=== PATIENT | female | born 1955 | race Caucasian/White ===

== ENCOUNTER 2022-07-31 11:23 | Emergency (ER) | payer OTHER ==
[2022-07-31] MEDS ORDERED: Sodium Chloride 0.9% 2.5 ML Syringe FLUSH PRN (11:38)
[2022-07-31] MEDS ORDERED: Sodium Chloride 0.9% 10 ML Syringe FLUSH PRN (11:38)
[2022-07-31] MEDS ORDERED: Albuterol/Ipratropium 3.0-0.5 MG/3 ML Neb Soln NEB STA (11:40)
[2022-07-31] MEDS ORDERED: methylPREDNISolone Sodium Succinate 125 MG/2 ML SDV IVPUSH STA (11:41)
[2022-07-31 11:50] LABS: BASOPHILS PERCENT AUTO 0.3 % (0.0-1.5); EOSINOPHILS ABSOLUTE AUTO 0.1 K/uL (0.0-0.7); EOSINOPHILS PERCENT AUTO 2.1 % (0.0-7.0); HEMATOCRIT 42.8 % (36.0-46.0); HEMOGLOBIN 14.4 g/dL (12.0-16.0); LYMPHOCYTES ABSOLUTE AUTO 2.5 K/uL (0.6-2.4); LYMPHOCYTES PERCENT AUTO 40.2 % (16.0-40.0); MEAN CORPUSCULAR HEMOGLOBIN 29.3 pg (27.0-32.0); MEAN CORPUSCULAR HGB CONC 33.6 g/dL (31.0-37.0); MEAN CORPUSCULAR VOLUME 87.2 fL (80.0-98.0); MONOCYTES ABSOLUTE AUTO 0.4 K/uL (0.0-0.8); MONOCYTES PERCENT AUTO 6.6 % (0.0-15.0); NEUTROPHILS ABSOLUTE AUTO 3.1 K/uL (1.4-5.7); NEUTROPHILS PERCENT AUTO 50.8 % (48.0-80.0); NRBC ABSOLUTE 0 K/uL; PLATELET COUNT,PLT 205 K/uL (150-400); RED BLOOD CELL COUNT 4.91 M/uL (4.30-5.90); WHITE BLOOD CELL COUNT,WBC 6.09 K/uL (4.0-11.0)
[2022-07-31 12:35] LABS: A/G RATIO 0.9 (0.9-1.6); ALBUMIN 3.6 g/dL (3.4-5.0); BILIRUBIN TOTAL 0.3 mg/dL (0.2-1.0); CALCIUM 8.7 mg/dL (8.5-10.1); CARBON DIOXIDE,CO2 26.3 mmol/L (21.0-32.0); CREATININE 0.8 mg/dL (0.6-1.0); EST CRCL DRUG DOSING (CG) 71.67 mL/min; POTASSIUM,K 3.9 mmol/L (3.5-5.1); PROTEIN TOTAL,TP 7.6 g/dL (6.4-8.2)
[2022-07-31] MEDS ORDERED: Albuterol 8 GM Inhaler INH STA (13:10)
== END 2022-07-31 13:27 | disposition home or self-care (01) ==
LOC: MW.ED 11:23
DX: J18.9 Pneumonia, unspecified organism (principal); J44.1 Chronic obstructive pulmonary disease with (acute) exacerbation; I48.91 Unspecified atrial fibrillation; I10 Essential (primary) hypertension; F17.210 Nicotine dependence, cigarettes, uncomplicated; Z88.5 Allergy status to narcotic agent; Z88.8 Allergy status to other drugs, medicaments and biological substances; Z88.2 Allergy status to sulfonamides; Z79.899 Other long term (current) drug therapy; Z20.822 Contact with and (suspected) exposure to COVID-19
CPT/HCPCS: 36415; 71045; 80053; 85025; 87635; 93005; 96374; 99285; A9270; J2930; J3490; 93010; 99284; J7620-GY; U0002

== ENCOUNTER 2022-08-01 22:28 | Inpatient (IN) | payer OTHER ==
[2022-08-01] MEDS ORDERED: Albuterol/Ipratropium 3.0-0.5 MG/3 ML Neb Soln NEB ONE (22:41)
[2022-08-01 23:01] LABS: BASOPHILS PERCENT AUTO 0.1 % (0.0-1.5); EOSINOPHILS PERCENT AUTO 0.1 % (0.0-7.0); HEMATOCRIT 42.5 % (36.0-46.0); HEMOGLOBIN 14.1 g/dL (12.0-16.0); LYMPHOCYTES ABSOLUTE AUTO 3.2 K/uL (0.6-2.4); LYMPHOCYTES PERCENT AUTO 31.3 % (16.0-40.0); MEAN CORPUSCULAR HEMOGLOBIN 28.9 pg (27.0-32.0); MEAN CORPUSCULAR HGB CONC 33.2 g/dL (31.0-37.0); MEAN CORPUSCULAR VOLUME 87.1 fL (80.0-98.0); MONOCYTES ABSOLUTE AUTO 0.6 K/uL (0.0-0.8); MONOCYTES PERCENT AUTO 5.7 % (0.0-15.0); NEUTROPHILS ABSOLUTE AUTO 6.3 K/uL (1.4-5.7); NEUTROPHILS PERCENT AUTO 62.8 % (48.0-80.0); NRBC ABSOLUTE 0 K/uL; PLATELET COUNT,PLT 219 K/uL (150-400); RED BLOOD CELL COUNT 4.88 M/uL (4.30-5.90); WHITE BLOOD CELL COUNT,WBC 10.07 K/uL (4.0-11.0)
[2022-08-01 23:17] LABS: INR 1.01 (0.86-1.11)
[2022-08-01 23:25] LABS: A/G RATIO 0.9 (0.9-1.6); ALANINE AMINOTRANSFERASE,ALT 22 IU/L (14-63); ALBUMIN 3.6 g/dL (3.4-5.0); ALKALINE PHOSPHATASE 78 U/L (46-116); ASPARTATE AMNIOTRANSFERASE,AST 16 IU/L (15-37); BILIRUBIN TOTAL 0.3 mg/dL (0.2-1.0); BLOOD UREA NITROGEN,BUN 23 mg/dL (7.0-18.0); C-REACTIVE PROTEIN <0.20 mg/dL (0.00-0.90); CARBON DIOXIDE,CO2 27.9 mmol/L (21.0-32.0); CHLORIDE,CL 101 mmol/L (98-107); CREATININE 1.1 mg/dL (0.6-1.0); EST CRCL DRUG DOSING (CG) 52.12 mL/min; GLUCOSE RANDOM 107 mg/dL (74-106); POTASSIUM,K 3.8 mmol/L (3.5-5.1); PROTEIN TOTAL,TP 7.5 g/dL (6.4-8.2); SODIUM,NA 139 mmol/L (136-145)
[2022-08-01 23:26] LABS: ESTIMATED GFR 56 mL/min (>60)
[2022-08-01] MEDS ORDERED: Azithromycin 500 MG in Sodium Chloride 0.9% 250 ML IV ONE (23:37)
[2022-08-01] MEDS ORDERED: cefTRIAXone 1 GM in Sodium Chloride 0.9% 50 ML IV ONE (23:37)
[2022-08-02] MEDS: Albuterol/Ipratropium 3.0-0.5 MG/3 ML Neb Soln NEB PRN ×2 (09:00→19:24)
[2022-08-02] MEDS ORDERED: Acetaminophen 325 MG Tab PO PRN (10:32)
[2022-08-02] MEDS ORDERED: methylPREDNISolone Sodium Succinate 40 MG/1 ML SDV IVPUSH ONE (11:53)
[2022-08-02] MEDS ORDERED: Enoxaparin 40 MG/0.4 ML Syringe SUBCUT SCH (12:30)
[2022-08-02] MEDS ORDERED: WARFARIN 4 MG PO SCH (12:45)
[2022-08-02] MEDS ORDERED: WARFARIN PO SCH ×3 (13:00)
[2022-08-02] MEDS: Digoxin 250 MCG Tab PO SCH (13:09)
[2022-08-02] MEDS: Hydrochlorothiazide 25 MG Tab PO SCH (13:09)
[2022-08-02] MEDS: Losartan 50 MG Tab PO SCH (13:10)
[2022-08-02] MEDS: Diltiazem 120 MG Cap.CD PO SCH (13:11)
[2022-08-02] MEDS: Nystatin Topical Powder 15 GM Bottle TOP SCH ×2 (14:11→21:50)
[2022-08-02] MEDS: Fluticasone NASAL Spray 16 GM Bottle NASBOTH SCH (14:12)
[2022-08-02] MEDS ORDERED: Albuterol/Ipratropium 3.0-0.5 MG/3 ML Neb Soln NEB PRN (21:13)
[2022-08-02] MEDS: Albuterol 0.083% 2.5 MG/3 ML Neb Soln NEB SCH (22:59)
[2022-08-02] MEDS: cefTRIAXone 1 GM in Sodium Chloride 0.9% 50 ML IV SCH (23:00)
[2022-08-02] MEDS: Azithromycin 500 MG in Sodium Chloride 0.9% 250 ML IV SCH (23:59)
[2022-08-03] MEDS: Albuterol 0.083% 2.5 MG/3 ML Neb Soln NEB SCH (05:36)
[2022-08-03] MEDS: Nystatin Topical Powder 15 GM Bottle TOP SCH ×3 (05:38→22:36)
[2022-08-03 05:58] LABS: BASOPHILS PERCENT AUTO 0.1 % (0.0-1.5); HEMATOCRIT 41.6 % (36.0-46.0); HEMOGLOBIN 13.7 g/dL (12.0-16.0); LYMPHOCYTES PERCENT AUTO 18.2 % (16.0-40.0); MEAN CORPUSCULAR HGB CONC 32.9 g/dL (31.0-37.0); MEAN CORPUSCULAR VOLUME 87.9 fL (80.0-98.0); MONOCYTES ABSOLUTE AUTO 0.6 K/uL (0.0-0.8); MONOCYTES PERCENT AUTO 5.2 % (0.0-15.0); NEUTROPHILS ABSOLUTE AUTO 8.2 K/uL (1.4-5.7); NEUTROPHILS PERCENT AUTO 76.5 % (48.0-80.0); NRBC ABSOLUTE 0 K/uL; PLATELET COUNT,PLT 237 K/uL (150-400); RED BLOOD CELL COUNT 4.73 M/uL (4.30-5.90); WHITE BLOOD CELL COUNT,WBC 10.75 K/uL (4.0-11.0)
[2022-08-03 06:06] LABS: INR 0.99 (0.86-1.11)
[2022-08-03 06:19] LABS: CARBON DIOXIDE,CO2 27.2 mmol/L (21.0-32.0); CREATININE 0.9 mg/dL (0.6-1.0); EST CRCL DRUG DOSING (CG) 62.86 mL/min; POTASSIUM,K 3.9 mmol/L (3.5-5.1)
[2022-08-03] MEDS: Losartan 50 MG Tab PO SCH (08:28)
[2022-08-03] MEDS: Diltiazem 120 MG Cap.CD PO SCH (08:28)
[2022-08-03] MEDS: Hydrochlorothiazide 25 MG Tab PO SCH (08:28)
[2022-08-03] MEDS: Digoxin 250 MCG Tab PO SCH (08:28)
[2022-08-03] MEDS: Fluticasone NASAL Spray 16 GM Bottle NASBOTH SCH (08:35)
[2022-08-03] MEDS ORDERED: Ipratropium 12.9 GM Inhaler INH PRN (09:56)
[2022-08-03] MEDS ORDERED: Albuterol 8 GM Inhaler INH PRN (09:57)
[2022-08-03] MEDS ORDERED: methylPREDNISolone Sodium Succinate 40 MG/1 ML SDV IVPUSH ONE (10:02)
[2022-08-03] MEDS: Enoxaparin 40 MG/0.4 ML Syringe SUBCUT SCH (10:49)
[2022-08-03] MEDS ORDERED: WARFARIN PO SCH ×3 (14:00)
[2022-08-03] MEDS: Albuterol 8 GM Inhaler INH PRN ×2 (17:22→22:24)
[2022-08-03] MEDS: Ipratropium 0.02% 0.5 MG/2.5 ML Neb Soln INH PRN (17:25)
[2022-08-03] MEDS ORDERED: Mometasone Furoate Powder 220 MCG/Puff 14 Dose Inhaler INH SCH (21:00)
[2022-08-03] MEDS: cefTRIAXone 1 GM in Sodium Chloride 0.9% 50 ML IV SCH ×2 (23:03→23:08)
[2022-08-04] MEDS: Azithromycin 500 MG in Sodium Chloride 0.9% 250 ML IV SCH (00:21)
[2022-08-04] MEDS: Ipratropium 0.02% 0.5 MG/2.5 ML Neb Soln INH PRN (02:03)
[2022-08-04] MEDS: Nystatin Topical Powder 15 GM Bottle TOP SCH (05:45)
[2022-08-04 05:52] LABS: BASOPHILS PERCENT AUTO 0.3 % (0.0-1.5); HEMATOCRIT 44.6 % (36.0-46.0); HEMOGLOBIN 14.4 g/dL (12.0-16.0); LYMPHOCYTES ABSOLUTE AUTO 2.3 K/uL (0.6-2.4); LYMPHOCYTES PERCENT AUTO 22.9 % (16.0-40.0); MEAN CORPUSCULAR HEMOGLOBIN 28.9 pg (27.0-32.0); MEAN CORPUSCULAR HGB CONC 32.3 g/dL (31.0-37.0); MEAN CORPUSCULAR VOLUME 89.6 fL (80.0-98.0); MONOCYTES ABSOLUTE AUTO 0.4 K/uL (0.0-0.8); MONOCYTES PERCENT AUTO 4.4 % (0.0-15.0); NEUTROPHILS ABSOLUTE AUTO 7.2 K/uL (1.4-5.7); NEUTROPHILS PERCENT AUTO 72.4 % (48.0-80.0); PLATELET COUNT,PLT 283 K/uL (150-400); RED BLOOD CELL COUNT 4.98 M/uL (4.30-5.90); WHITE BLOOD CELL COUNT,WBC 9.88 K/uL (4.0-11.0)
[2022-08-04 06:04] LABS: INR 1.1 (0.86-1.11)
[2022-08-04 06:05] LABS: CARBON DIOXIDE,CO2 30.5 mmol/L (21.0-32.0); EST CRCL DRUG DOSING (CG) 56.58 mL/min; POTASSIUM,K 3.9 mmol/L (3.5-5.1)
[2022-08-04] MEDS: Albuterol 8 GM Inhaler INH PRN (07:20)
[2022-08-04] MEDS: Digoxin 250 MCG Tab PO SCH (08:12)
[2022-08-04] MEDS: Losartan 50 MG Tab PO SCH (08:12)
[2022-08-04] MEDS: Hydrochlorothiazide 25 MG Tab PO SCH (08:12)
[2022-08-04] MEDS: Fluticasone NASAL Spray 16 GM Bottle NASBOTH SCH (08:12)
[2022-08-04] MEDS: Diltiazem 120 MG Cap.CD PO SCH (08:13)
[2022-08-04] MEDS: Enoxaparin 40 MG/0.4 ML Syringe SUBCUT SCH (10:44)
== END 2022-08-04 11:09 | disposition home or self-care (01) | DRG 194 ==
LOC: MW.ED 22:28 → MW.MS 23:43 → OBSVTOIN 08-03 09:52 → MW.MS 08-03 10:43
PROVIDERS: ADMIT Internal Medicine; ATTEND Internal Medicine
DX: J18.9 Pneumonia, unspecified organism (principal); J44.0 Chronic obstructive pulmonary disease with (acute) lower respiratory infection; N17.9 Acute kidney failure, unspecified; I48.91 Unspecified atrial fibrillation; B37.2 Candidiasis of skin and nail; J32.9 Chronic sinusitis, unspecified; I10 Essential (primary) hypertension; E66.9 Obesity, unspecified; F17.210 Nicotine dependence, cigarettes, uncomplicated; Z88.5 Allergy status to narcotic agent; Z88.2 Allergy status to sulfonamides; Z79.01 Long term (current) use of anticoagulants; Z79.899 Other long term (current) drug therapy; Z79.51 Long term (current) use of inhaled steroids; Z88.8 Allergy status to other drugs, medicaments and biological substances
CPT/HCPCS: 36415; 71045; 71045-26; 80048; 80053; 80162; 84484; 85025; 85610; 86140; 93005; 93010; 94640; 96365; 96366; 96367; 96374; 96375; 97110-GP; 97161-GP; 99222; 99232; 99239; 99283; 99285-25; A9270-GY; G0378; J0456; J0696; J1650; J2920; J3490; J7050; J7620-GY